=== PATIENT | male | born 1985 | race Caucasian/White ===

== ENCOUNTER 2020-11-29 20:03 | Emergency (ER) | payer SELFPAY ==
[~2020-11-29] VITALS: Ht 167.6 cm; Wt 59.0 kg
[2020-11-29 20:03] VITALS: BP 144/89
--- NOTE | 2020-11-29 20:16 | NUR ---
1954 - PT BROUGHT O BED 1 VIA YENNY HOBSON
--- NOTE | 2020-11-29 20:16 | NUR ---
RN STATED PT HAD LEFT ROOM
--- NOTE | 2020-11-29 21:00 | NUR ---
pt eloped, security notified.
--- NOTE | 2020-11-29 21:00 | NUR ---
PATIENT ELOPED FROM FACILITY. DISCHARGE INSTRUCTIONS NOT GIVEN TO PATIENT. DR. rausch NOTIFIED.
== END 2020-11-29 21:00 | disposition left against medical advice (07) ==
LOC: MED 20:03
DX: R41.82 Altered mental status, unspecified (principal); Z53.21 Procedure and treatment not carried out due to patient leaving prior to being seen by health care provider